=== PATIENT | male | born 1970 | race Caucasian/White ===

== ENCOUNTER 2016-06-06 14:18 | Emergency (ER) | payer SELFPAY ==
[~2016-06-06] VITALS: Ht 180.3 cm; Wt 95.3 kg
[2016-06-06 14:23] VITALS: BP 143/82
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
--- NOTE | 2016-06-06 14:51 | NUR ---
ER MD DR CEBALLOS EVALUATING PT AT BEDSIDE
[2016-06-06] MEDS ORDERED: METHOCARBAMOL 500 MG TAB PO ONE (14:55)
[2016-06-06] MEDS ORDERED: HYDROcodone/APAP 5/325 MG 1 TAB TAB PO ONE (14:55)
[2016-06-06 15:52] VITALS: BP 137/79
--- NOTE | 2016-06-06 15:52 | NUR ---
Patient discharged with v/s stable. Written and verbal after care instructions given and explained. Patient alert, oriented and verbalized understanding of instructions. Ambulatory with steady gait. All questions addressed prior to discharge. ID band removed. Patient advised to follow up with PMD. Rx of MOTRIN & ROBAXIN given. Patient educated on indication of medication including possible reaction and side effects. Opportunity to ask questions provided and answered.
[2016-06-06] MEDS ORDERED: BACITRACIN ZINC/POLYMYXIN B OINT 30 GM TUBE TP ONE (16:10)
[2016-06-06] MEDS ORDERED: BACITRACIN OINT 500 UNITS/GM PKT TP ONE (16:21)
== END 2016-06-06 15:52 | disposition home or self-care (01) ==
LOC: MED 14:18
DX: S13.4XXA Sprain of ligaments of cervical spine, initial encounter (principal); S00.01XA Abrasion of scalp, initial encounter; F07.81 Postconcussional syndrome; V43.52XA Car driver injured in collision with other type car in traffic accident, initial encounter; Y93.89 Activity, other specified; Y92.89 Other specified places as the place of occurrence of the external cause; Y99.8 Other external cause status